=== PATIENT | male | born 1965 | race Caucasian/White ===

== ENCOUNTER 2017-05-02 09:03 | Inpatient (IN) | payer MEDICARE ==
[~2017-05-02] VITALS: Ht 170.2 cm; Wt 83.6 kg
[~2017-05-02 09:03] MED LIST: CARB200T6 PO; QUET100T PO; QUET300T2 PO; VENL-193 PO
[2017-05-02 10:19] VITALS: BP 118/60
[2017-05-02] MEDS ORDERED: VIST50 PO (11:21)
[2017-05-02] MEDS ORDERED: ATOR20TA86 PO (11:21)
[2017-05-02] MEDS ORDERED: VENL-68 PO (11:21)
[2017-05-02] MEDS ORDERED: GABA-531 PO (11:21)
[2017-05-02] MEDS ORDERED: QUET100T PO (11:21)
[2017-05-02 12:09] VITALS: BP 104/64
[2017-05-02] MEDS ORDERED: IBUPROFEN 400 MG TABLET PO PRN (12:45)
[2017-05-02] MEDS ORDERED: DOCUSATE SODIUM 100 MG CAPSULE PO PRN (12:45)
[2017-05-02] MEDS ORDERED: ACETAMINOPHEN 325 MG TABLET PO PRN (12:45)
[2017-05-02] MEDS: GABAPENTIN 400 MG CAPSULE PO SCH ×2 (13:43→16:53)
[2017-05-02] MEDS: HydrOXYzine PAMOATE 25 MG CAPSULE PO SCH ×2 (13:43→16:53)
[2017-05-02 16:21] VITALS: BP 115/66
[2017-05-02] MEDS: FERROUS SULFATE 325 MG EC TABLET PO SCH (16:53)
[2017-05-02] MEDS: LORazepam 2 MG TABLET PO PRN (17:51)
[2017-05-02] MEDS: QUEtiapine FUMARATE 200 MG TABLET PO SCH (20:40)
[2017-05-03 00:09] VITALS: BP 119/64
[2017-05-03 06:57] VITALS: BP 124/69
[2017-05-03] MEDS: LORazepam 2 MG TABLET PO PRN ×2 (06:59→15:42)
[2017-05-03] MEDS: FERROUS SULFATE 325 MG EC TABLET PO SCH ×2 (06:59→17:11)
[2017-05-03 08:32] VITALS: BP 111/60
[2017-05-03] MEDS: HydrOXYzine PAMOATE 25 MG CAPSULE PO SCH ×3 (08:53→17:12)
[2017-05-03] MEDS: GABAPENTIN 400 MG CAPSULE PO SCH ×3 (08:53→17:12)
[2017-05-03] MEDS: QUEtiapine FUMARATE 200 MG TABLET PO SCH ×2 (08:53→20:27)
[2017-05-03] MEDS: VENLAFAXINE HCL 75 MG ER CAPSULE PO SCH (08:53)
[2017-05-03] MEDS: ATORVASTATIN CALCIUM 20 MG TABLET PO SCH (08:53)
[2017-05-03 08:57] LABS: BASOPHILS # (AUTO) 0.05 K/uL (0.00-0.20); BASOPHILS % (AUTO) 0.9 % (0.0-2.0); EOSINOPHILS % (AUTO) 0 % (1.0-6.0); HEMATOCRIT 35.8 % (41-53); HEMOGLOBIN 11.9 g/dL (13.5-17.5); LYMPHOCYTES # (AUTO) 1.7 K/uL (1.0-4.8); LYMPHOCYTES % (AUTO) 29.2 % (22.0-44.0); MEAN CORPUSCULAR HEMOGLOBIN 29.1 pg (26.0-34.0); MEAN CORPUSCULAR HGB CONC 33.3 G/dL (31.0-37.0); MEAN CORPUSCULAR VOLUME 87 fL (80-100); MONOCYTES # (AUTO) 0.5 K/uL (0.1-1.0); MONOCYTES % (AUTO) 7.7 % (2.0-9.0); NEUTROPHILS # (AUTO) 3.6 K/uL (1.8-7.7); NEUTROPHILS % (AUTO) 62.3 % (40.0-70.0); PLATELET COUNT (AUTO) 343 K/uL (150-450); RED BLOOD CELL COUNT(AUTO) 4.09 MIL/uL (4.50-5.90); RED CELL DISTRIBUTION WIDTH 16.2 % (11.5-14.5); WHITE BLOOD COUNT (AUTO) 5.9 K/uL (4.5-11.0)
[2017-05-03 09:34] LABS: IRON, SERUM 55 mcg/dL (50-175); TOTAL IRON BINDING CAPACITY 344 mcg/dL (250-450)
[2017-05-03 09:52] LABS: ALANINE AMINOTRANSFERASE 34 U/L (12-78); ALBUMIN 3.7 g/dL (3.4-5.0); ANION GAP 9 mmol/L (8-16); ASPARTATE AMINOTRANSFERASE 11 U/L (15-37); BILIRUBIN,TOTAL 0.3 mg/dL (0.1-1.0); CALCIUM, TOTAL 8.7 mg/dL (8.8-10.5); CARBON DIOXIDE 27 mmol/L (22-29); CHLORIDE 107 mmol/L (98-107); CHOL/HDL RATIO 4.3 (4.2-7.3); CREATININE 0.78 mg/dL (0.60-1.30); FERRITIN 59 ng/mL (26-388); GLOMERULAR FILTR. RATE CALC > 60 mL/min (>60); POTASSIUM 4.4 mmol/L (3.5-5.1); SODIUM SERUM 143 mmol/L (136-145); THYROID STIMULATING HORMONE 1.11 uIU/mL (0.36-3.74); TOTAL PROTEIN, SERUM 6.3 g/dL (6.4-8.2); UREA NITROGEN, BLOOD 21 mg/dL (7-18)
[2017-05-03 09:55] LABS: HEMOGLOBIN A1C 5.6 % (4.5-6.2)
[2017-05-03 10:39] LABS: APPEARANCE,URINE CLEAR (CLEAR); GLUCOSE, URINE (UA) NEGATIVE (NEGATIVE); KETONES,URINE NEGATIVE (NEGATIVE); LEUKOCYTE ESTERASE ,URINE NEGATIVE (NEGATIVE); OCCULT BLOOD,URINE NEGATIVE (NEGATIVE); PROTEIN,URINE NEGATIVE (NEGATIVE)
[2017-05-03 11:40] LABS: RBC,URINE None Seen /HPF (0-2); WBC,URINE None Seen /HPF (0-5)
[2017-05-03 11:42] LABS: SQUAMOUS EPITHELIAL CELL,UR Rare /LPF (None Seen)
[2017-05-03 16:21] VITALS: BP 119/70
[2017-05-04 04:00] VITALS: BP 121/72
[2017-05-04] MEDS: LORazepam 2 MG TABLET PO PRN ×2 (05:34→10:54)
[2017-05-04] MEDS: FERROUS SULFATE 325 MG EC TABLET PO SCH ×2 (07:26→16:17)
[2017-05-04] MEDS: HydrOXYzine PAMOATE 25 MG CAPSULE PO SCH ×3 (09:03→16:17)
[2017-05-04] MEDS: ATORVASTATIN CALCIUM 20 MG TABLET PO SCH (09:03)
[2017-05-04] MEDS: GABAPENTIN 400 MG CAPSULE PO SCH ×3 (09:03→16:17)
[2017-05-04] MEDS: QUEtiapine FUMARATE 200 MG TABLET PO SCH ×2 (09:03→20:04)
[2017-05-04] MEDS: VENLAFAXINE HCL 75 MG ER CAPSULE PO SCH (09:03)
[2017-05-04 09:04] VITALS: BP 112/69
[2017-05-04 16:05] VITALS: BP 119/64
[2017-05-05 00:48] VITALS: BP 102/63
[2017-05-05] MEDS: LORazepam 2 MG TABLET PO PRN ×2 (00:57→15:55)
[2017-05-05] MEDS: HALOPERIDOL 5 MG TABLET PO PRN (00:57)
[2017-05-05] MEDS: FERROUS SULFATE 325 MG EC TABLET PO SCH ×2 (06:32→16:57)
[2017-05-05] MEDS: GABAPENTIN 400 MG CAPSULE PO SCH ×3 (08:25→16:57)
[2017-05-05] MEDS: HydrOXYzine PAMOATE 25 MG CAPSULE PO SCH ×3 (08:25→16:56)
[2017-05-05] MEDS: VENLAFAXINE HCL 75 MG ER CAPSULE PO SCH (08:25)
[2017-05-05] MEDS: ATORVASTATIN CALCIUM 20 MG TABLET PO SCH (08:25)
[2017-05-05] MEDS: QUEtiapine FUMARATE 200 MG TABLET PO SCH ×2 (08:26→20:41)
[2017-05-05 08:54] VITALS: BP 117/67
[2017-05-05 16:25] VITALS: BP 138/75
[2017-05-06 01:06] VITALS: BP 120/60
[2017-05-06] MEDS: HALOPERIDOL 5 MG TABLET PO PRN (01:06)
[2017-05-06] MEDS: LORazepam 2 MG TABLET PO PRN ×3 (01:06→15:00)
[2017-05-06 06:27] VITALS: BP 113/64
[2017-05-06] MEDS: FERROUS SULFATE 325 MG EC TABLET PO SCH ×2 (06:27→16:39)
[2017-05-06 08:40] VITALS: BP 118/70
[2017-05-06] MEDS: VENLAFAXINE HCL 75 MG ER CAPSULE PO SCH (09:01)
[2017-05-06] MEDS: HydrOXYzine PAMOATE 25 MG CAPSULE PO SCH ×3 (09:02→16:39)
[2017-05-06] MEDS: GABAPENTIN 400 MG CAPSULE PO SCH ×3 (09:02→16:41)
[2017-05-06] MEDS: ATORVASTATIN CALCIUM 20 MG TABLET PO SCH (09:02)
[2017-05-06] MEDS: QUEtiapine FUMARATE 200 MG TABLET PO SCH ×2 (09:02→20:54)
[2017-05-06] MEDS ORDERED: QUET200T PO (11:38)
[2017-05-06 16:15] VITALS: BP 138/78
[2017-05-06] MEDS: TraZODone HCL 50 MG TABLET PO SCH (20:54)
[2017-05-07 01:51] VITALS: BP 100/61
[2017-05-07 04:01] VITALS: BP 100/60
[2017-05-07] MEDS: HALOPERIDOL 5 MG TABLET PO PRN (04:02)
[2017-05-07] MEDS: LORazepam 2 MG TABLET PO PRN (04:02)
[2017-05-07] MEDS: FERROUS SULFATE 325 MG EC TABLET PO SCH ×2 (06:56→16:08)
[2017-05-07] MEDS: HydrOXYzine PAMOATE 25 MG CAPSULE PO SCH ×3 (08:07→16:08)
[2017-05-07] MEDS: QUEtiapine FUMARATE 200 MG TABLET PO SCH ×2 (08:07→20:30)
[2017-05-07] MEDS: GABAPENTIN 400 MG CAPSULE PO SCH ×3 (08:07→16:08)
[2017-05-07] MEDS: VENLAFAXINE HCL 75 MG ER CAPSULE PO SCH (08:07)
[2017-05-07] MEDS: ATORVASTATIN CALCIUM 20 MG TABLET PO SCH (08:07)
[2017-05-07 08:11] VITALS: BP 104/60
[2017-05-07 16:46] VITALS: BP 100/57
[2017-05-07] MEDS: TraZODone HCL 50 MG TABLET PO SCH (20:30)
[2017-05-08 00:13] VITALS: BP 122/65
[2017-05-08] MEDS: HALOPERIDOL 5 MG TABLET PO PRN (05:58)
[2017-05-08] MEDS: LORazepam 2 MG TABLET PO PRN ×2 (05:58→14:42)
[2017-05-08] MEDS: FERROUS SULFATE 325 MG EC TABLET PO SCH ×2 (06:48→16:38)
[2017-05-08] MEDS: VENLAFAXINE HCL 75 MG ER CAPSULE PO SCH (08:11)
[2017-05-08] MEDS: ATORVASTATIN CALCIUM 20 MG TABLET PO SCH (08:12)
[2017-05-08] MEDS: HydrOXYzine PAMOATE 25 MG CAPSULE PO SCH ×3 (08:12→16:38)
[2017-05-08] MEDS: QUEtiapine FUMARATE 200 MG TABLET PO SCH (08:12)
[2017-05-08] MEDS: GABAPENTIN 400 MG CAPSULE PO SCH ×3 (08:12→16:38)
[2017-05-08 08:38] VITALS: BP 118/65
[2017-05-08 16:09] VITALS: BP 116/68
[2017-05-08] MEDS ORDERED: QUET400T PO (16:10)
[2017-05-08] MEDS ORDERED: TRAZ-144 PO (16:10)
[2017-05-08] MEDS ORDERED: VENL-68 PO (16:10)
[2017-05-08] MEDS ORDERED: GABA-533 PO (16:10)
[2017-05-08] MEDS ORDERED: ATOR20TA86 PO (16:17)
[2017-05-08] MEDS ORDERED: FERR-89 PO (16:17)
[2017-05-08] MEDS ORDERED: HYDR-4031 PO ×2 (16:44→16:48)
== END 2017-05-08 19:15 | disposition home or self-care (01) | DRG 885 ==
LOC: B2X 10:52
PROVIDERS: ADMIT Psychiatry & Neurology Psychiatry; ATTEND Psychiatry & Neurology Psychiatry
DX: F33.2 Major depressive disorder, recurrent severe without psychotic features (principal); R45.850 Homicidal ideations; R45.851 Suicidal ideations; E78.5 Hyperlipidemia, unspecified; F10.10 Alcohol abuse, uncomplicated; F12.90 Cannabis use, unspecified, uncomplicated; F17.200 Nicotine dependence, unspecified, uncomplicated; F60.3 Borderline personality disorder; D64.9 Anemia, unspecified; Z71.41 Alcohol abuse counseling and surveillance of alcoholic; Z71.51 Drug abuse counseling and surveillance of drug abuser; Z59.0 Homelessness; Z81.8 Family history of other mental and behavioral disorders; Z91.5 Personal history of self-harm; Z79.899 Other long term (current) drug therapy
CPT/HCPCS: 80307; 82728; 83036; 83540; 83550; 84439; 84443; 87081

== ENCOUNTER 2017-05-17 11:34 | Inpatient (IN) | payer MEDICARE ==
[~2017-05-17] VITALS: Ht 175.3 cm; Wt 83.9 kg
[~2017-05-17 11:34] MED LIST changes: +ATOR20TA86 PO; -CARB200T6 PO; +FERR-89 PO; +GABA-533 PO; +HYDR-4031 PO; -QUET100T PO; +QUET200T PO; -QUET300T2 PO; +QUET400T PO; +TRAZ-144 PO; -VENL-193 PO; +VENL-68 PO
[2017-05-17] MEDS ORDERED: INFLUENZA VIRUS VACCINE QVS 2017-18 (3YR+)/PF 60 MCG/0.5 ML SYRINGE IM ONE (15:00)
[2017-05-17 15:44] VITALS: BP 134/72
[2017-05-17 16:15] VITALS: BP 136/73
[2017-05-17] MEDS ORDERED: LORazepam 2 MG/ML VIAL IM ONE (16:30)
[2017-05-17] MEDS ORDERED: DiphenhydrAMINE HCL 50 MG/ML VIAL IM ONE (16:30)
[2017-05-17] MEDS ORDERED: HALOPERIDOL LACTATE 5 MG/ML VIAL IM ONE (16:30)
[2017-05-17 17:10] VITALS: BP 138/70
[2017-05-17] MEDS: TraZODone HCL 50 MG TABLET PO SCH (20:38)
[2017-05-17] MEDS: QUEtiapine FUMARATE 200 MG TABLET PO SCH (20:38)
[2017-05-18 06:05] VITALS: BP 105/61
[2017-05-18] MEDS: FERROUS SULFATE 325 MG EC TABLET PO SCH ×2 (06:07→16:17)
[2017-05-18 08:01] LABS: BASOPHILS # (AUTO) 0.05 K/uL (0.00-0.20); BASOPHILS % (AUTO) 0.9 % (0.0-2.0); EOSINOPHILS % (AUTO) 0 % (1.0-6.0); HEMATOCRIT 37.3 % (41-53); HEMOGLOBIN 12.3 g/dL (13.5-17.5); LYMPHOCYTES # (AUTO) 1.2 K/uL (1.0-4.8); LYMPHOCYTES % (AUTO) 22.6 % (22.0-44.0); MEAN CORPUSCULAR HEMOGLOBIN 29.4 pg (26.0-34.0); MEAN CORPUSCULAR VOLUME 89 fL (80-100); MONOCYTES # (AUTO) 0.3 K/uL (0.1-1.0); MONOCYTES % (AUTO) 6.2 % (2.0-9.0); NEUTROPHILS # (AUTO) 3.8 K/uL (1.8-7.7); NEUTROPHILS % (AUTO) 70.3 % (40.0-70.0); PLATELET COUNT (AUTO) 276 K/uL (150-450); RED BLOOD CELL COUNT(AUTO) 4.19 MIL/uL (4.50-5.90); RED CELL DISTRIBUTION WIDTH 15.2 % (11.5-14.5); WHITE BLOOD COUNT (AUTO) 5.4 K/uL (4.5-11.0)
[2017-05-18 08:08] VITALS: BP 115/65
[2017-05-18] MEDS: HydrOXYzine PAMOATE 25 MG CAPSULE PO SCH ×3 (08:40→16:18)
[2017-05-18] MEDS: VENLAFAXINE HCL 150 MG ER CAPSULE PO SCH (08:40)
[2017-05-18] MEDS: QUEtiapine FUMARATE 200 MG TABLET PO SCH ×2 (08:40→20:25)
[2017-05-18] MEDS: GABAPENTIN 400 MG CAPSULE PO SCH ×3 (08:41→16:18)
[2017-05-18] MEDS: NICOTINE 7 MG/24 HOUR PATCH TD SCH (08:41)
[2017-05-18] MEDS: ATORVASTATIN CALCIUM 20 MG TABLET PO SCH (08:41)
[2017-05-18 09:01] LABS: ALANINE AMINOTRANSFERASE 27 U/L (12-78); ALBUMIN 3.6 g/dL (3.4-5.0); ANION GAP 9 mmol/L (8-16); ASPARTATE AMINOTRANSFERASE 18 U/L (15-37); BILIRUBIN,TOTAL 0.3 mg/dL (0.1-1.0); CALCIUM, TOTAL 8.9 mg/dL (8.8-10.5); CARBON DIOXIDE 24 mmol/L (22-29); CHLORIDE 104 mmol/L (98-107); CREATININE 0.87 mg/dL (0.60-1.30); GLOMERULAR FILTR. RATE CALC > 60 mL/min (>60); POTASSIUM 4.1 mmol/L (3.5-5.1); SODIUM SERUM 137 mmol/L (136-145); THYROID STIMULATING HORMONE 0.99 uIU/mL (0.36-3.74); TOTAL PROTEIN, SERUM 6.9 g/dL (6.4-8.2); UREA NITROGEN, BLOOD 17 mg/dL (7-18)
[2017-05-18 16:17] VITALS: BP 102/69
[2017-05-18] MEDS: TraZODone HCL 50 MG TABLET PO SCH (20:25)
[2017-05-18] MEDS ORDERED: ACETAMINOPHEN 325 MG TABLET PO PRN (21:15)
[2017-05-18] MEDS ORDERED: IBUPROFEN 400 MG TABLET PO PRN (21:15)
[2017-05-19] MEDS: LORazepam 2 MG TABLET PO PRN ×2 (05:42→17:03)
[2017-05-19 05:45] VITALS: BP 118/64
[2017-05-19] MEDS: FERROUS SULFATE 325 MG EC TABLET PO SCH ×2 (06:27→17:03)
[2017-05-19] MEDS ORDERED: FERROUS SULFATE 325 MG EC TABLET PO SCH (07:00)
[2017-05-19 08:39] VITALS: BP 128/61
[2017-05-19] MEDS ORDERED: ATORVASTATIN CALCIUM 20 MG TABLET PO SCH (09:00)
[2017-05-19] MEDS: VENLAFAXINE HCL 150 MG ER CAPSULE PO SCH (09:03)
[2017-05-19] MEDS: ATORVASTATIN CALCIUM 20 MG TABLET PO SCH (09:03)
[2017-05-19] MEDS: GABAPENTIN 400 MG CAPSULE PO SCH ×3 (09:03→17:03)
[2017-05-19] MEDS: QUEtiapine FUMARATE 200 MG TABLET PO SCH ×2 (09:03→20:36)
[2017-05-19] MEDS: HydrOXYzine PAMOATE 25 MG CAPSULE PO SCH ×3 (09:03→17:03)
[2017-05-19] MEDS: NICOTINE 7 MG/24 HOUR PATCH TD SCH (09:03)
[2017-05-19 16:00] VITALS: BP 119/72
[2017-05-19] MEDS: TraZODone HCL 50 MG TABLET PO SCH (20:36)
[2017-05-20 06:01] VITALS: BP 107/71
[2017-05-20] MEDS: LORazepam 2 MG TABLET PO PRN ×3 (06:02→16:12)
[2017-05-20] MEDS: FERROUS SULFATE 325 MG EC TABLET PO SCH ×2 (06:18→16:11)
[2017-05-20 08:37] VITALS: BP 115/68
[2017-05-20] MEDS: QUEtiapine FUMARATE 200 MG TABLET PO SCH ×2 (08:52→20:33)
[2017-05-20] MEDS: GABAPENTIN 400 MG CAPSULE PO SCH ×3 (08:52→16:11)
[2017-05-20] MEDS: VENLAFAXINE HCL 150 MG ER CAPSULE PO SCH (08:52)
[2017-05-20] MEDS: HydrOXYzine PAMOATE 25 MG CAPSULE PO SCH ×3 (08:52→16:11)
[2017-05-20] MEDS: NICOTINE 7 MG/24 HOUR PATCH TD SCH (08:52)
[2017-05-20] MEDS: ATORVASTATIN CALCIUM 20 MG TABLET PO SCH (10:03)
[2017-05-20 12:03] VITALS: BP 115/77
[2017-05-20 16:00] VITALS: BP 128/75
[2017-05-20] MEDS: TraZODone HCL 50 MG TABLET PO SCH (20:33)
[2017-05-21] MEDS: LORazepam 2 MG TABLET PO PRN ×3 (05:09→17:10)
[2017-05-21 05:10] VITALS: BP 129/68
[2017-05-21] MEDS: FERROUS SULFATE 325 MG EC TABLET PO SCH ×2 (06:32→17:10)
[2017-05-21 08:11] VITALS: BP 109/60
[2017-05-21] MEDS: VENLAFAXINE HCL 150 MG ER CAPSULE PO SCH (09:16)
[2017-05-21] MEDS: ATORVASTATIN CALCIUM 20 MG TABLET PO SCH (09:16)
[2017-05-21] MEDS: HydrOXYzine PAMOATE 25 MG CAPSULE PO SCH ×3 (09:16→17:10)
[2017-05-21] MEDS: GABAPENTIN 400 MG CAPSULE PO SCH ×3 (09:17→17:10)
[2017-05-21] MEDS: QUEtiapine FUMARATE 200 MG TABLET PO SCH ×2 (09:17→20:09)
[2017-05-21] MEDS: NICOTINE 7 MG/24 HOUR PATCH TD SCH (09:18)
[2017-05-21 16:00] VITALS: BP 115/72
[2017-05-21] MEDS: TraZODone HCL 50 MG TABLET PO SCH (20:09)
[2017-05-22 01:02] VITALS: BP 111/61
[2017-05-22] MEDS: ZOLPIDEM TARTRATE 10 MG TABLET PO PRN (01:06)
[2017-05-22] MEDS: LORazepam 2 MG TABLET PO PRN ×3 (06:16→16:11)
[2017-05-22] MEDS: FERROUS SULFATE 325 MG EC TABLET PO SCH ×2 (06:16→16:11)
[2017-05-22 08:24] VITALS: BP 115/61
[2017-05-22] MEDS: HydrOXYzine PAMOATE 25 MG CAPSULE PO SCH ×3 (08:29→16:10)
[2017-05-22] MEDS: GABAPENTIN 400 MG CAPSULE PO SCH ×3 (08:29→16:10)
[2017-05-22] MEDS: VENLAFAXINE HCL 150 MG ER CAPSULE PO SCH (08:29)
[2017-05-22] MEDS: QUEtiapine FUMARATE 200 MG TABLET PO SCH ×2 (08:29→20:55)
[2017-05-22] MEDS: NICOTINE 7 MG/24 HOUR PATCH TD SCH (08:30)
[2017-05-22] MEDS: ATORVASTATIN CALCIUM 20 MG TABLET PO SCH (08:30)
[2017-05-22 16:00] VITALS: BP 116/67
[2017-05-22] MEDS ORDERED: TraZODone HCL 100 MG TABLET PO SCH (21:00)
[2017-05-23] MEDS: ZOLPIDEM TARTRATE 10 MG TABLET PO PRN (01:27)
[2017-05-23 01:28] VITALS: BP 107/63
[2017-05-23] MEDS: LORazepam 2 MG TABLET PO PRN (05:01)
[2017-05-23] MEDS: FERROUS SULFATE 325 MG EC TABLET PO SCH (06:27)
[2017-05-23 08:17] VITALS: BP 130/71
[2017-05-23] MEDS: VENLAFAXINE HCL 150 MG ER CAPSULE PO SCH (08:20)
[2017-05-23] MEDS: ATORVASTATIN CALCIUM 20 MG TABLET PO SCH (08:20)
[2017-05-23] MEDS: GABAPENTIN 400 MG CAPSULE PO SCH (08:20)
[2017-05-23] MEDS: QUEtiapine FUMARATE 200 MG TABLET PO SCH (08:20)
[2017-05-23] MEDS: HydrOXYzine PAMOATE 25 MG CAPSULE PO SCH (08:20)
[2017-05-23] MEDS: NICOTINE 7 MG/24 HOUR PATCH TD SCH (08:23)
== END 2017-05-23 10:00 | disposition home or self-care (01) | DRG 885 ==
LOC: B3A 15:40
PROVIDERS: ADMIT Psychiatry & Neurology Psychiatry; ATTEND Psychiatry & Neurology Psychiatry
DX: F33.2 Major depressive disorder, recurrent severe without psychotic features (principal); R45.850 Homicidal ideations; R45.851 Suicidal ideations; D64.9 Anemia, unspecified; F60.3 Borderline personality disorder; E78.5 Hyperlipidemia, unspecified; F12.90 Cannabis use, unspecified, uncomplicated; F41.1 Generalized anxiety disorder; Z91.5 Personal history of self-harm; Z28.21 Immunization not carried out because of patient refusal; Z59.0 Homelessness; Z81.8 Family history of other mental and behavioral disorders
CPT/HCPCS: 84439; 84443; 86592; 87081; J1200; J1630; J2060